=== PATIENT | male | born 1975 | race Caucasian/White ===

== ENCOUNTER 2023-11-07 00:06 | Emergency (ER) | payer OTHER ==
[~2023-11-07] VITALS: Ht 172.7 cm; Wt 95.2 kg
[2023-11-07 01:00] VITALS: BP 126/92
[2023-11-07] MEDS ORDERED: IBU600 MG PO (01:00)
[2023-11-07] MEDS ORDERED: Veetids 500500 MG PO (01:00)
== END 2023-11-07 01:15 | disposition home or self-care (01) ==
LOC: ER 00:06
DX: K08.89 Other specified disorders of teeth and supporting structures (principal); F17.200 Nicotine dependence, unspecified, uncomplicated
CPT/HCPCS: 99282; A9270

== ENCOUNTER 2024-05-17 19:49 | Emergency (ER) | payer OTHER ==
[~2024-05-17] VITALS: Ht 177.8 cm; Wt 104.3 kg
[~2024-05-17 19:49] MED LIST: IBU600 MG PO; Veetids 500500 MG PO
[2024-05-17 20:03] VITALS: BP 137/94
== END 2024-05-17 21:55 | disposition home or self-care (01) ==
LOC: ER 19:49
DX: M79.672 Pain in left foot (principal); F17.210 Nicotine dependence, cigarettes, uncomplicated
CPT/HCPCS: 73630; 99283-25